=== PATIENT | female | born 1955 | race Two or more races ===

== ENCOUNTER 2017-03-25 07:44 | Emergency (ER) | payer SELFPAY ==
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
[2017-03-25] MEDS ORDERED: ACETAMINOPHEN 325 MG TABLET PO ONE (09:00)
[2017-03-25 09:46] VITALS: BP 179/108
== END 2017-03-25 09:46 | disposition home or self-care (01) ==
LOC: ER 07:44
DX: S00.83XA Contusion of other part of head, initial encounter (principal); Y04.2XXA Assault by strike against or bumped into by another person, initial encounter; Y93.89 Activity, other specified; Y92.009 Unspecified place in unspecified non-institutional (private) residence as the place of occurrence of the external cause; R03.0 Elevated blood-pressure reading, without diagnosis of hypertension
CPT/HCPCS: 70486; 99284